=== PATIENT | female | born 1975 | race Caucasian/White ===

== ENCOUNTER → 2017-03-14 07:47 | Outpatient (CLI) | payer MEDICARE | END | disposition home or self-care (01) | LOC: D.MRI 07:47 | DX: C30.0 Malignant neoplasm of nasal cavity (principal) ==

== ENCOUNTER 2019-02-19 09:39 | Inpatient (IN) | payer MEDICAID ==
[~2019-02-19] VITALS: Ht 154.9 cm; Wt 54.6 kg
[2019-02-19] VITALS (10 sets, daily range): BP systolic 95–120; BP diastolic 58–81; Ht 154.9 cm; Wt 54.6 kg
[2019-02-19] MEDS ORDERED: ELAVIL25 MG PO (09:49)
[2019-02-19 10:16] LABS: BASOPHILS 0.4 % (0-2); EOSINOPHILS 1.2 % (0-7); HEMATOCRIT 42.1 % (36.0-48.0); HEMOGLOBIN 14.6 g/dL (12-16); IMMATURE GRANULOCYTES 0.3 % (0-5); LYMPHOCYTES 22.2 % (15-50); MCH 31.2 pg (26.0-34.0); MCHC 34.7 g/dL (31.0-37.0); MEAN PLATELET VOLUME 10.8 fL (7.4-10.4); MONOCYTES 4.3 % (2-11); NEUTROPHILS 71.6 % (40-80); RBC 4.68 10x6/uL (4.00-5.40); RDW 12.8 % (11.5-14.5); WBC 6.7 10x3/uL (4.8-10.8)
[2019-02-19 10:19] LABS: PLATELET COUNT 218 10x3/uL (130-400)
[2019-02-19 10:33] LABS: ALBUMIN 4.3 g/dL (3.4-5.0); ANION GAP 10.9 mmol/L (8-16); BILIRUBIN - TOTAL 0.54 mg/dL (0.2-1.3); CALCIUM 9.8 mg/dL (8.5-10.1); CARBON DIOXIDE 29.7 mmol/L (21.0-32.0); CREATININE - SERUM 0.9 mg/dL (0.6-1.3); POTASSIUM - SERUM 3.6 mmol/L (3.5-5.1); PROTEIN - SERUM 8.3 g/dL (6.4-8.2)
--- NOTE | 2019-02-19 10:58 | NUR ---
DONNA SPECIMEN OBTAINED, LABELED AT BS AD SENT TO LAB
--- NOTE | 2019-02-19 11:25 | NUR ---
TO CT VIA W/C WITH RECOVERY ROOM NURSE
[2019-02-19 11:41] LABS: APPEARANCE CLOUDY (CLEAR); COLOR YELLOW (YELLOW)
[2019-02-19 11:42] LABS: AMORPHOUS SEDIMENT >1+ /lpf (NONE SEEN); BACTERIA MODERATE /hpf (NONE SEEN); BILIRUBIN NEGATIVE (NEGATIVE); EPITHELIAL CELLS OCC /hpf (0-5); GLUCOSE NEGATIVE (NEGATIVE); KETONE NEGATIVE (NEGATIVE); MUCUS <1+ /lpf (NONE SEEN); NITRITE NEGATIVE (NEGATIVE); PROTEIN NEGATIVE (NEGATIVE); RED CELLS - URINE 0-5 /hpf (0-5); SPECIFIC GRAVITY 1.005 (1.005-1.020); WHITE CELLS - URINE OCC /hpf (0-5)
--- NOTE | 2019-02-19 13:16 | NUR ---
ATTEMPTED TO CALL REPORT, RN UNAVAILABLE, WILL CALL BACK
--- NOTE | 2019-02-19 13:30 | NUR ---
PT HAVING SUDDEN ONSET SEVERE RIGHT FLANK/RLQ PAIN 05/06. DR VILLAGRAN PAGED AND SPOKE WITH HAZEL OLSEN. NEW ORDER [facility] FOR DEMORAL AND ADMIN. DR VILLAGRAN CALLED BACK AND OK WITH ORDER AND CHANGED MORPHINE TO Q [address] VILLAGRAN REPORTS OR INFORMED HIM OR UNAVAILABLE UNTIL THIS EVENING. PT AND FAMILY INFORMED
--- NOTE | 2019-02-19 13:30 | NUR ---
RECEIVED REPORT FROM KATHE FROM THE ED. PATIENT WILL BE MADE NPO FOR SURGERY TODAY.
--- NOTE | 2019-02-19 14:12 | NUR ---
NS INFUSING @ 100ML/HR UPON TX TO FLOOR
--- NOTE | 2019-02-19 14:12 | NUR ---
TRANSPORTED TO ROOM #2135, CONDITION STABLE.
--- NOTE | 2019-02-19 14:17 | NUR ---
RECEIVED TO ROOM VIA WHEELCHAIR. FAMILY AT BEDSIDE.
[2019-02-19 15:30] LABS: CARBON DIOXIDE 26.7 mmol/L (21.0-32.0); POTASSIUM - SERUM 3.7 mmol/L (3.5-5.1)
--- NOTE | 2019-02-19 16:46 | NUR ---
1638-URINE SENT TO LAB ORDERED FOR CULTURE. C/O PAIN TO RIGHT FLANK. MORPHINE GIVEN ORDERED.
--- NOTE | 2019-02-19 17:02 | NUR ---
PATIENT IS INSTRUCTED TO USE SURGERY WIPES THEY JUST CALLED AND SAID TO PRE-OP.
--- NOTE | 2019-02-19 17:47 | NUR ---
TO OR VIA BED.
--- NOTE | 2019-02-19 19:17 | NUR ---
REFUSES SCD' SHE IS UP AND DOWN TO RESTROOM WITH TRYING TO PASS STONE.
--- NOTE | 2019-02-19 19:43 | NUR ---
EVENING ROUNDS COMPLETED. REPORT RECEIVED FROM GAMALIEL HENRY RN, SURGERY. PT HAS ARRIVED TO FLOOR BY BED. PT DENIES FURTHER NEEDS AT THIS TIME. BED IN LOW POSITION. NO S/S OF DISTRESS. ANSWERS QUESTIONS APPROPRIATELY. INTRODUCED SELF TO PT. PT DENIES FURTHER NEEDS AT THIS TIME. CALL LIGHT IN REACH. WILL CTM.
--- NOTE | 2019-02-19 21:41 | NUR ---
REFUSES ORDERED AMYTRIPTILINE, WILL CTM.
--- NOTE | 2019-02-19 22:26 | NUR ---
ADMINISTERED ORDERED ANALGESIC FOR COMPLAINTS OF PAIN IN RIGHT SIDE. PT STATES PAIN OF A 6 ON A SCALE OF 0-10.
[2019-02-20] VITALS: BP 88/55
--- NOTE | 2019-02-20 03:29 | NUR ---
ADMINISTERED ORDERED ANALGESIC FOR COMPLAINTS OF PAIN IN RIGHT SIDE. PT STATES PAIN OF A 6 ON A SCALE OF 0-10.
[2019-02-20 04:00] VITALS: BP 92/51
--- NOTE | 2019-02-20 04:35 | NUR ---
I have reviewed this patient and I concur with the Shift Assessment completed by the Licensed Practical Nurse today this shift.
[2019-02-20 05:20] LABS: BASOPHILS 0.5 % (0-2); EOSINOPHILS 1.1 % (0-7); IMMATURE GRANULOCYTES 0.2 % (0-5); LYMPHOCYTES 31.3 % (15-50); MCH 30.1 pg (26.0-34.0); MCHC 33.5 g/dL (31.0-37.0); MCV 89.7 fL (80.0-100.0); MEAN PLATELET VOLUME 10.8 fL (7.4-10.4); MONOCYTES 7.9 % (2-11); PLATELET COUNT 192 10x3/uL (130-400); RDW 12.4 % (11.5-14.5); WBC 6.2 10x3/uL (4.8-10.8)
[2019-02-20 05:21] LABS: HEMATOCRIT 32.2 % (36.0-48.0); HEMOGLOBIN 10.8 g/dL (12-16); RBC 3.59 10x6/uL (4.00-5.40)
[2019-02-20 05:32] LABS: CALC OSMOLALITY 283 mosm/kg (275-300); CALCIUM 8.3 mg/dL (8.5-10.1); CARBON DIOXIDE 27.7 mmol/L (21.0-32.0); CHLORIDE - SERUM 109 mmol/L (98-107); CREATININE - SERUM 0.8 mg/dL (0.6-1.3); GLUCOSE 92 mg/dL (74-106); MAGNESIUM - SERUM 1.8 mg/dL (1.8-2.4); PHOSPHOROUS 3.8 mg/dL (2.5-4.9); POTASSIUM - SERUM 4.2 mmol/L (3.5-5.1); SODIUM 142 mmol/L (136-145); UREA NITROGEN 16 mg/dL (7-18); eGFR NON AFRICAN AMERICAN 82 mL/min (90-120)
--- NOTE | 2019-02-20 06:04 | NUR ---
PT RESTING COMFORTABLY IN BED WITH EYES OPEN, RR EVEN AND UNLABORED. BED IN LOW POSITION. LEFT AC PIV INFUSING NORMAL SALINE ORDERED. PT STATES PAIN IS UNDER CONTROL AT THIS TIME. NO S/S OF DISTRESS NOTED. CALL LIGHT IN REACH. WILL CTM.
--- NOTE | 2019-02-20 07:14 | NUR ---
BEDSIDE SHIFT REPORT COMPLETE, WHITE BOARD UPDATED. PATIENT IS AWAKE AND RESTING IN BED ON HER RIGHT SIDE, FAMILY AND FRIENDS AT THE BEDSIDE. PATIENT REPORTS SOME "RED BLOOD IN THE TOLIET WHEN SHE URINATES" AND PAIN IN THE LOWER RIGHT SIDE OF 4/10. CALL LIGHT IN REACH, PLAN OF CARE DISCUSSED
[2019-02-20 08:34] VITALS: BP 98/66
[2019-02-20] MEDS ORDERED: Levaquin PO (10:47)
--- NOTE | 2019-02-20 10:54 | OP ---
PATIENT NAME: JOSE J MARTINEZ MEDICAL RECORD: [id number] LOCATION:D. D.2135 ADMISSION DATE:02/19/19 SURGEON: HARRY JOHNSON MD DATE OF OPERATION: 02/19/2019 SURGEON: Harry Johnson MD ANESTHESIA: General anesthesia by Michael Bauman CRNA DIAGNOSES: Cystoscopy, right retrograde pyelogram, right ureteroscopy and stone extraction, right ureteral stent insertion 6-Burundian x 24 cm with string attached. DIAGNOSIS: A 5-mm right distal ureteral stone. FINDINGS: Radiodense ureteral stone. SPECIMENS: Right ureteral stone. ESTIMATED BLOOD LOSS: None. CLINICAL HISTORY: This is a 43-year-old female, who has no previous history of renal colic. She came to the Emergency Room with acute right flank pain and nausea. A CT scan showed bilateral punctate nonobstructive renal stones. There is a 5 mm renal stones lodged in the distal ureter on the right side. She was admitted for pain control. She comes now to have the stone removed by ureteroscopy. She was given [employer] immigration inspector to the OR. DESCRIPTION OF PROCEDURE: The patient was given induction of general anesthesia. She was then placed in the dorsal lithotomy position and shaved, prepped and draped. Fluoroscopy revealed a possible radiodensity in the right lower pelvis which could represent the ureteral stone. Cystoscopy showed single ureteral orifices bilaterally with no bladder tumors. An open-ended ureteral catheter was inserted into the right ureter orifice and then we performed a retrograde pyelogram by injecting diluted contrast. This showed that the radiodensity was indeed the ureteral stone. There was proximal hydronephrosis. A Sensor wire was then inserted through the lumen of the ureteral catheter up into the renal pelvis. The ureteral catheter was then removed, leaving the wire in place. Over the Sensor wire, we inserted an 18-Burundian x 4-cm ureteral dilation balloon. The ureteral orifice was dilated with 12 atmospheres of pressure for a few seconds and then the balloon was deflated and removed entirely. We then switched to the rigid ureteroscope. The stone was identified. A 2.4 Burundian 0-tip 4 wire basket was used and the stone was completely removed. Repeat ureteroscopy revealed no further stones up to the mid ureteral level. We then backloaded the wire onto the cystoscope. Over the wire, we inserted a 6-Burundian x 24 cm ureteral stent. Once the stent was in correct position, the wire was entirely withdrawn. The distal end of stent was pushed into the bladder using a pusher. The string on the distal end of the stent is maintained and it hangs out of the urethra. The bladder was emptied through the cystoscope sheath and then the scope was removed. The string was taped to the suprapubic area with a small piece of Tegaderm. The patient was awakened and brought to recovery room. She will be sent home today. I will see her in followup next week to remove the stent. TRANSINT:[id number] Voice Confirmation ID: [id number] DOCUMENT ID: [id number] OPERATIVE REPORT [id number] JOSE J MARTINEZ ROBERT S MD at 1054 CC: [id number] DICTATION DATE: 02/19/19 184 RPG PROGRAMMER: 02/20/19 0023 ADM IN [facility] [address] [place] [address]
--- NOTE | 2019-02-20 11:30 | MORECARE ---
CASE MANAGEMENT DISCHARGE SUMMARY PATIENT: JOSE J MARTINEZ UNIT: [id number] ADM DATE: 02/19/19 AGE: 43 : [birth year] SEX: F ROOM/BED: D.6585 AUTHOR: GALDINO HECK PHYSICIAN: REFERRING PHYSICIAN: ELISEO BARILLAS MD DATE OF SERVICE: 02/20/19 Discharge Plan Patient Name: JOSE J MARTINEZ Facility: [facility]:[place] : 1975 Planned Disposition: Home Anticipated Discharge Date: Discharge Date: Expected LOS: Initial Reviewer: [email or web address] Initial Review Date: 02/20/2019 Generated: 02/20/19 12:30 pm Patient Name: JOSE J MARTINEZ Page [id number] at 1130 All edits/amendments must be made on the electronic document DICTATION DATE: 02/20/19 113 DIRECTOR WHOLESALE: JOSE ALEJANDRO 02/20/19 1130 RPT#: [id number] SD DATE: STATUS: ADM IN [facility] [address] [place] [address] END OF REPORT
[2019-02-20 12:59] VITALS: BP 102/69
--- NOTE | 2019-02-20 13:05 | NUR ---
ROUNDED WITH DR JOHNSON TO SEE THE PATIENT
[2019-02-20] MEDS ORDERED: FLOMAX0.4 MG PO (13:49)
[2019-02-20] MEDS ORDERED: HYDROCODON-ACE1 EAC7 PO (13:49)
--- NOTE | 2019-02-20 14:03 | NUR ---
REMOVED THE IV FROM THE LEFT AC, CATH TIP INTACT, PATIENT REFUSED DRESSING, SHE IS HOLDING PRESSURE. REVIEWED THE DISCHARGE PAPERWORK, SIGNED AND WAS GIVEN THE WRITTEN RX.
--- NOTE | 2019-02-22 10:03 | MORECARE ---
CASE MANAGEMENT DISCHARGE SUMMARY PATIENT: JOSE J MARTINEZ UNIT: [id number] ADM DATE: 02/19/19 AGE: 43 : [birth year] SEX: F ROOM/BED: D.5462 AUTHOR: GALDINO HECK PHYSICIAN: REFERRING PHYSICIAN: ELISEO BARILLAS MD DATE OF SERVICE: 02/22/19 Discharge Plan Patient Name: JOSE J MARTINEZ Facility: [facility]:[place] : 1975 Planned Disposition: Home Anticipated Discharge Date: 02/20/19 Discharge Date: 02/20/2019 Expected LOS: 1 Initial Reviewer: [email or web address] Initial Review Date: 02/20/2019 Generated: 02/22/19 11:03 am Last DP export: 02/20/19 10:31 a Patient Name: JOSE J MARTINEZ Page [id number] at 1003 All edits/amendments must be made on the electronic document DICTATION DATE: 02/22/19 1003 SINGEING TORCH OPERATOR: JOSE ALEJANDRO 02/22/19 1003 RPT#: [id number] DC DATE:02/20/19 STATUS: DIS IN [facility] [address] [place] [address] END OF REPORT
== END 2019-02-20 14:21 | disposition home or self-care (01) | DRG 661 ==
LOC: D.ER 09:39 → D.M2 12:40
PROVIDERS: Family Medicine; Urology; ADMIT Family Medicine; ATTEND Family Medicine
PROC: 0T768DZ Dilation of Right Ureter with Intraluminal Device, Via Natural or Artificial Opening Endoscopic (ICD-10-PCS; principal; 2019-02-19 13:00)
PROC: 0TC68ZZ Extirpation of Matter from Right Ureter, Via Natural or Artificial Opening Endoscopic (ICD-10-PCS; 2019-02-19 13:00)
PROC: BT1D1ZZ Fluoroscopy of Right Kidney, Ureter and Bladder using Low Osmolar Contrast (ICD-10-PCS; 2019-02-19 13:00)
DX: N13.2 Hydronephrosis with renal and ureteral calculous obstruction (principal); N39.0 Urinary tract infection, site not specified; R14.0 Abdominal distension (gaseous)

== ENCOUNTER → 2019-02-26 18:11 | Outpatient (CLI) | payer MEDICAID ==
[2019-02-19 14:31] VITALS: BMI 22.7
[~2019-02-26 18:11] MED LIST: ELAVIL25 MG PO; FLOMAX0.4 MG PO; HYDROCODON-ACE1 EAC7 PO; Levaquin PO
== END | disposition home or self-care (01) ==
LOC: D.LABREF 18:11
PROVIDERS: ATTEND Urology
DX: N39.0 Urinary tract infection, site not specified (principal)